=== PATIENT | female | born 1990 | race Hispanic/Latino ===

== ENCOUNTER 2019-03-16 16:14 | Emergency (ER) | payer BC, OTHER ==
--- OUTSIDE RECORDS SUMMARY | 2019-03-16 16:16 | XMS REPORT | Clinical Summary ---
:1990 Author Organization [facility] Address [address] [place] [address] Care Team Providers Name Role Phone Arelis Lyle MD Primary Care Provider Allergies No Known Allergies Medications Medication Sig Dispensed Refills Start Date End Date Status temazepam (RESTORIL) 30 TAKE ONE (1) 3 11/24/2017 Active mg capsule CAPSULE(S) BY MOUTH AT BEDTIME PRN ADIPEX-P 37.5 mg tablet TK 1 T PO QD 0 11/22/2017 Active propranolol (INDERAL) 10 TK 1 T PO BID 0 11/16/2017 Active MG tablet PRN FOR MIGRAINE LOCO caffeine 200 mg tablet Take 200 mg by 0 Active mouth every 4 (four) hours as needed for headaches. UNABLE TO FIND LIVER SUPPORT 1 0 Active DAILY magnesium oxide (MAG-OX) Take 400 mg by 0 Active 400 mg tablet mouth daily. ONABOTULINUMTOXINA (BOTOX Inject as 0 Active INJ) directed. FOR MIGRAINE LOCO Active Problems Problem Noted Date Migraine headache TMJ (dislocation of temporomandibular joint) Family History Medical History Relation Name Comments Diabetes Father Hypertension Father Liver cancer Father Heart disease Mother Relation Name Status Comments Father Mother Social History Tobacco Use Types Packs/Day Years Used Date Never Smoker Smokeless Tobacco: Never Used Alcohol Use Drinks/Week oz/Week Comments Yes OCCASIONAL Sex Assigned at Date Recorded Not on file Job Start Date Occupation Industry Not on file Not on file Not on file Travel History Travel Start Travel End No recent travel history available. Last Filed Vital Signs Not on file Plan of Treatment Health Maintenance Due Date Last Done Comments CERVICAL CANCER SCREENING 2009 INFLUENZA VACCINE 06/06/2019 Results Not on fileafter 03/15/2018 Insurance Payer Benefit Plan / Group Subscriber ID Type Phone Address AETNA AETNA PPO OPEN CHOICE xxxxxxxxxx PPO Advance Directives Patient has advance care planning documents on file. For more information, please contact:Shakeel Lofton[address] [place] [address]
--- OUTSIDE RECORDS SUMMARY | 2019-03-16 16:16 | XMS REPORT ---
:1990 [facility] Address [address] [place] [address] Dr. Cortez [address] [place] [id number] Care Team Providers Name Role Phone Unavailable Unavailable Unavailable Problems This patient has no known problems. Allergies, Adverse Reactions, Alerts This patient has no known allergies or adverse reactions. Medications This patient has no known medications.
[2019-03-16 17:04] LABS: Absolute Lymphocytes (CBC) 0.6 K/uL (0.7-4.9); Absolute Monocytes 0.3 K/uL (0.1-1.3); Absolute Neutrophil 3.8 K/uL (1.8-8.0); Basophils % 0.3 % (0-1.3); Eosinophils % 0.5 % (0-4.4); Hematocrit 39.7 % (36.0-45.0); Lymphocytes % 13.3 % (15.3-44.8); MPV 9.3 fL (7.6-11.3); Monocytes % 7.1 % (3.3-12.3); RBC Red Blood Cell Count 4.14 M/uL (3.86-4.86)
[2019-03-16] MEDS ORDERED: NA CHLORIDE 0.9% 1,000 ML ONE (17:12)
[2019-03-16 17:14] LABS: Urine Blood NEGATIVE (NEG); Urine Glucose NEGATIVE (NEG); Urine Protein NEGATIVE (NEG); Urine pH 6.5 (5.0-7.0)
[2019-03-16 17:16] LABS: Urine Bacteria NONE SEEN /HPF (<20); Urine Culture Reflex Order NOT NEEDED; Urine RBC <5 /HPF (NONE SEEN)
[2019-03-16 17:22] LABS: ALT/SGPT 226 U/L (12-78); AST/SGOT 123 U/L (15-37); Albumin 3.7 g/dL (3.4-5.0); Alkaline Phosphatase 197 U/L (45-117); BUN Blood Urea Nitrogen 9 mg/dL (7-18); Bicarbonate 26 mmol/L (21-32); Bilirubin Direct 0.2 mg/dL (0-0.2); Bilirubin Total 0.9 mg/dL (0.2-1.0); Glucose Level 90 mg/dL (74-106); Lipase 95 U/L (73-393); Potassium 3.5 mmol/L (3.5-5.1); Protein, Total 7.4 g/dL (6.4-8.2); Sodium Level 137 mmol/L (136-145)
[2019-03-16] MEDS ORDERED: KETOROLAC 30 MG/ML INJ ONE (17:56)
[2019-03-16] MEDS ORDERED: ONDANSETRON 4 MG/2 ML VIAL ONE (18:18)
--- NOTE | 2019-03-16 18:26 | RAD REPORT ---
EXAM DESCRIPTION: CTAbdomen Pelvis W Contrast - 03/16/2019 5:56 pm CLINICAL HISTORY: Abdominal pain. Abd pain;Abdominal distention COMPARISON: CT ABD PELVIS W CONTRAST dated 04/13/2009 TECHNIQUE: Biphasic CT imaging of the abdomen and pelvis was performed with 100 ml non-ionic IV cont rast. All CT scans are performed using dose optimization technique as appropriate and may include automated exposure control or mA/KV adjustment according to patient size. FINDINGS: The lung bases are clear. The liver, spleen, pancreas, adrenal glands and kidneys are within normal limits. No bowel obstruction, free air, free fluid or abscess. A few mildly prominent small bowel loops are s een along the left abdomen. The appendix is normal. No evidence of significant lymphadenopathy. No suspicious bony findings. IMPRESSION: Mild enteritis or along the left aspect of the abdomen is possible.
--- NOTE | 2019-03-16 19:00 | ER ---
Nurse's Notes [facility] Name: Oliva Diego Age: 29 yrs Sex: Female : 1990 Arrival Date: 03/16/2019 Time: 16:17 Bed 8 Private MD: Dusty Estrada Diagnosis: Noninfective gastroenteritis and colitis, unspecified Presentation: 03/16 16:22 Presenting complaint: Patient states: I started having abd swelling, pain and had fever la1 at home. I have had liver problems before so I went to urgent care and they sent me here. Transition of care: patient was not received from another setting of care. Onset of symptoms was March 16, 2019. Risk Assessment: Do you want to hurt yourself or someone else? Patient reports no desire to harm self or others. Initial Sepsis Screen: Does the patient meet any 2 criteria? No. Patient's initial sepsis screen is negative. Does the patient have a suspected source of infection? No. Patient's initial sepsis screen is negative. Care prior to arrival: None. 16:22 Method Of Arrival: Ambulatory la1 16:22 Acuity: ARVIND 3 la1 TOOL SHARPENER: 16:24 LMP 02/19/2019 la1 Historical: - Allergies: 16:23 No Known Allergies; la1 - PMHx: 16:23 Hypertension; Migraines; la1 - PSHx: 16:23 Cholecystectomy; la1 - Immunization history:: Adult Immunizations up to date. - Social history:: Smoking status: Patient/guardian denies using tobacco. - Ebola Screening: : No symptoms or risks identified at this time. Screenin:00 Abuse screen: Denies threats or abuse. Denies injuries from another. Nutritional aj screening: No deficits noted. Tuberculosis screening: No symptoms or risk factors identified. Fall Risk None identified. Assessment: 17:00 General: Appears in no apparent distress. uncomfortable, Behavior is calm, cooperative, aj appropriate for age. Pain: Complains of pain in abdomen. Neuro: Level of Consciousness is awake, alert, obeys commands, Oriented to person, place, time, situation, Appropriate for age. Respiratory: Airway is patent Respiratory effort is even, unlabored, Respiratory pattern is regular, symmetrical. GI: Abdomen is obese, Bowel sounds present X 4 quads. Derm: Skin is intact, is healthy with good turgor, Skin is pink, warm \T\ dry. normal. 17:48 Reassessment: Patient appears in no apparent distress at this time. No changes from aj previously documented assessment. Patient and/or family updated on plan of care and expected duration. Pain level reassessed. Patient is alert, oriented x 3, equal unlabored respirations, skin warm/dry/pink. 19:15 Reassessment: Patient appears in no apparent distress at this time. Patient is alert, aa1 oriented x 3, equal unlabored respirations, skin warm/dry/pink. Technology Architect at bedside discussing results with pt. Discussed d/c \T\ f/u instructions; denies questions or concerns at this this time. Ambulatory to lobby with steady gait. Patient states symptoms have improved. Vital Signs: 16:24 BP 125 / 86; Pulse 115; Resp 16; Temp 98.6; Pulse Ox 98% on R/A; Weight 71.67 kg; la1 Height 5 ft. 2 in. (157.48 cm); Pain 8/10; 18:34 BP 98 / 65; Pulse 85; Resp 18; Pulse Ox 99% on R/A; Pain 4/10; jb1 19:15 BP 107 / 65; Pulse 82; Resp 16; Temp 98.3; Pulse Ox 98% on R/A; Pain 5/10; aa1 16:24 Body Mass Index 28.90 (71.67 kg, 157.48 cm) la1 ED Course: 16:17 Patient arrived in ED. mr 16:17 None, None is Private Physician. mr 16:18 Dusty Estrada MD is Private Physician. mr 16:23 Triage completed. la1 16:24 Arm band placed on right wrist. la1 16:25 Geeta Riley, AMY is Primary Nurse. aj 16:30 Melissa Morfin FNP-C is PHCP. snw 16:30 Abel Ramirez MD is Attending Physician. snw 16:40 Inserted saline lock: 20 gauge in right antecubital area, using aseptic technique. aj Blood collected. 16:57 Radiology exam delayed due to lab results not completed at this time. (BUN/Creatinine) bq test not completed at this time. 17:00 Patient has correct armband on for positive identification. aj 17:01 Urine collected: clean catch specimen, cloudy, noni colored. jb1 17:[address] mw3 17:57 CT Abd/Pelvis - W/Contrast In Process Unspecified. EDMS 17:57 CT completed. Patient tolerated procedure well. Patient moved back from CT. mw3 18:56 Dusty Estrada MD is Referral Physician. snw 19:15 No provider procedures requiring assistance completed. IV discontinued, intact, aa1 bleeding controlled, No redness/swelling at site. Pressure dressing applied. Administered Medications: 16:48 Drug: NS 0.9% 1000 ml Route: IV; Rate: 1 bolus; Site: right antecubital; aj 17:43 CANCELLED (other intervention used): fentaNYL (PF) 25 mcg IVP once snw 17:48 Drug: TORadol 30 mg Route: IVP; Site: right antecubital; aj 18:11 Follow up: Response: Pain is decreased aj 18:11 Drug: Zofran 4 mg Route: IVP; Site: right antecubital; aj 19:11 Follow up: Response: No adverse reaction; Nausea is decreased aa1 19:07 Drug: Cipro 500 mg Route: PO; aj 19:16 Follow up: Response: No adverse reaction; Medication administered at discharge. aa1 Outcome: 18:59 Discharge ordered by MD. snw 19:15 Discharged to home ambulatory. aa1 19:15 Condition: good 19:15 Discharge instructions given to patient, Instructed on discharge instructions, follow up and referral plans. medication usage, Demonstrated understanding of instructions, follow-up care, medications, Prescriptions given X 2. 19:19 Patient left the ED. aa1 Signatures: Dispatcher [employer] EDMal Costa jbUsha Morelos, RN RN Geeta Priest RN RN Melissa Weeks, CONFIGURATION RELEASE MANAGER-C CONFIGURATION RELEASE MANAGER-Csnw LagunasNubia mr Marleny Marte Lee, RN RN Pretty Richards mw3
--- NOTE | 2019-03-16 19:00 | EDPHYS ---
Physician Documentation [facility] Name: Oliva Diego Age: 29 yrs Sex: Female : 1990 Arrival Date: 03/16/2019 Time: 16:17 Bed 8 Private MD: Dusty Estrada ED Physician Abel Ramirez HPI: 03/16 16:40 This 29 yrs old Female presents to ER via Ambulatory with complaints of snw Abdominal Swelling, Headache, Fever. 16:40 The patient presents with abdominal pain abdominal distention in the upper abdomen. snw Onset: The symptoms/episode began/occurred suddenly, 3 day(s) ago, and became worse and became persistent. The symptoms radiate to back. Associated signs and symptoms: Pertinent positives: nausea, hungry but can't eat, headache. . The symptoms are described as constant, crampy. Modifying factors: The symptoms are alleviated by nothing. Severity of pain: At its worst the pain was moderate severe in the emergency department the pain is unchanged. one year ago prior to cholecystectomy at [facility]. The patient has not recently seen a physician. BURR GRINDER: 16:24 LMP 02/19/2019 la1 Historical: - Allergies: 16:23 No Known Allergies; la1 - PMHx: 16:23 Hypertension; Migraines; la1 - PSHx: 16:23 Cholecystectomy; la1 - Immunization history:: Adult Immunizations up to date. - Social history:: Smoking status: Patient/guardian denies using tobacco. - Ebola Screening: : No symptoms or risks identified at this time. ROS: 16:40 Constitutional: Negative for fever, chills, and weight loss, Eyes: Negative for injury, snw pain, redness, and discharge, ENT: Negative for injury, pain, and discharge, Neck: Negative for injury, pain, and swelling, Cardiovascular: Negative for chest pain, palpitations, and edema, Respiratory: Negative for shortness of breath, cough, wheezing, and pleuritic chest pain, Back: Negative for injury and pain, : Negative for injury, bleeding, discharge, and swelling, MS/Extremity: Negative for injury and deformity, Skin: Negative for injury, rash, and discoloration, Neuro: Negative for headache, weakness, numbness, tingling, and seizure. 16:40 Abdomen/GI: Positive for abdominal pain, nausea, abdominal distension. Exam: 16:39 Constitutional: This is a well developed, well nourished patient who is awake, alert, snw and in no acute distress. Head/Face: Normocephalic, atraumatic. Eyes: Pupils equal round and reactive to light, extra-ocular motions intact. Lids and lashes normal. Conjunctiva and sclera are non-icteric and not injected. Cornea within normal limits. Periorbital areas with no swelling, redness, or edema. ENT: Nares patent. No nasal discharge, no septal abnormalities noted. Tympanic membranes are normal and external auditory canals are clear. Oropharynx with no redness, swelling, or masses, exudates, or evidence of obstruction, uvula midline. Mucous membranes moist. Neck: Trachea midline, no thyromegaly or masses palpated, and no cervical lymphadenopathy. Supple, full range of motion without nuchal rigidity, or vertebral point tenderness. No Meningismus. Chest/axilla: Normal chest wall appearance and motion. Nontender with no deformity. No lesions are appreciated. Cardiovascular: Regular rate and rhythm with a normal S1 and S2. No gallops, murmurs, or rubs. Normal PMI, no JVD. No pulse deficits. Respiratory: Lungs have equal breath sounds bilaterally, clear to auscultation and percussion. No rales, rhonchi or wheezes noted. No increased work of breathing, no retractions or nasal flaring. Back: No spinal tenderness. No costovertebral tenderness. Full range of motion. Skin: Warm, dry with normal turgor. Normal color with no rashes, no lesions, and no evidence of cellulitis. MS/ Extremity: Pulses equal, no cyanosis. Neurovascular intact. Full, normal range of motion. Neuro: Awake and alert, GCS 15, oriented to person, place, time, and situation. Cranial nerves II-XII grossly intact. Motor strength 5/5 in all extremities. Sensory grossly intact. Cerebellar exam normal. Normal gait. 16:39 Abdomen/GI: Inspection: distension, that is moderate, Bowel sounds: normal, Palpation: moderate abdominal tenderness, in the right upper quadrant and left upper quadrant. Vital Signs: 16:24 BP 125 / 86; Pulse 115; Resp 16; Temp 98.6; Pulse Ox 98% on R/A; Weight 71.67 kg; la1 Height 5 ft. 2 in. (157.48 cm); Pain 8/10; 18:34 BP 98 / 65; Pulse 85; Resp 18; Pulse Ox 99% on R/A; Pain 4/10; jb1 19:15 BP 107 / 65; Pulse 82; Resp 16; Temp 98.3; Pulse Ox 98% on R/A; Pain 5/10; aa1 16:24 Body Mass Index 28.90 (71.67 kg, 157.48 cm) la1 MDM: 16:39 Patient medically screened. snw 19:05 Data reviewed: vital signs, nurses notes. Data interpreted: Pulse oximetry: on room air snw is 99 %. Interpretation: normal. Counseling: I had a detailed discussion with the patient and/or guardian regarding: the historical points, exam findings, and any diagnostic results supporting the discharge/admit diagnosis, lab results, radiology results, the need for outpatient follow up, to return to the emergency department if symptoms worsen or persist or if there are any questions or concerns that arise at home. Special discussion: Based on the history and exam findings, there is no indication for further emergent testing or inpatient evaluation. I discussed with the patient/guardian the need to see the primary care provider for further evaluation of the symptoms. 03/16 16:39 Order name: Basic Metabolic Panel; Complete Time: 17:28 snw 03/16 16:39 Order name: CBC with Diff; Complete Time: 17:10 snw 03/16 16:39 Order name: Hepatic Function; Complete Time: 17:28 snw 03/16 16:39 Order name: Lipase; Complete Time: 17:28 snw 03/16 16:39 Order name: Test, Serum; Complete Time: 17:37 snw 03/16 16:47 Order name: Urine Culture snw 03/16 16:39 Order name: CT Abd/Pelvis - W/Contrast; Complete Time: 18:50 snw 03/16 16:47 Order name: Urine Microscopic Only; Complete Time: 17:28 snw 03/16 17:07 Order name: Urine Dipstick--Ancillary (enter results); Complete Time: 17:28 eb 03/16 17:07 Order name: Urine --Ancillary (enter results); Complete Time: 17:28 eb 05/11 16:39 Order name: IV Saline Lock; Complete Time: 17:17 snw 03/16 16:39 Order name: Labs collected and sent; Complete Time: 17:17 snw 03/16 16:47 Order name: Urine Test (obtain specimen); Complete Time: 17:01 snw 03/16 16:47 Order name: Urine Dipstick-Ancillary (obtain specimen); Complete Time: 17:01 snw Administered Medications: 16:48 Drug: NS 0.9% 1000 ml Route: IV; Rate: 1 bolus; Site: right antecubital; aj 17:43 CANCELLED (other intervention used): fentaNYL (PF) 25 mcg IVP once snw 17:48 Drug: TORadol 30 mg Route: IVP; Site: right antecubital; aj 18:11 Follow up: Response: Pain is decreased aj 18:11 Drug: Zofran 4 mg Route: IVP; Site: right antecubital; aj 19:11 Follow up: Response: No adverse reaction; Nausea is decreased aa1 19:07 Drug: Cipro 500 mg Route: PO; aj 19:16 Follow up: Response: No adverse reaction; Medication administered at discharge. aa1 Disposition: 03/16/19 18:59 Discharged to Home. Impression: Noninfective gastroenteritis and colitis, unspecified. - Condition is Stable. - Discharge Instructions: Food Choices to Help Relieve Diarrhea, Adult, Viral Gastroenteritis, Adult. - Prescriptions for Cipro 500 mg Oral Tablet - take 1 tablet by ORAL route every 12 hours for 10 days; 20 tablet. promethazine 25 mg Oral Tablet - take 1 tablet by ORAL route every 6 hours As needed; 20 tablet. - Work release form, Medication Reconciliation Form, Thank You Letter, Antibiotic Education, Prescription Opioid Use form. - Follow up: Dusty Estrada MD; When: 2 - 3 days; Reason: Recheck today's complaints, Continuance of care, Re-evaluation by your physician. Follow up: Emergency Department; When: As needed; Reason: Worsening of condition. Addendum: 03/18/2019 07:01 Co-signature as Attending Physician, Abel Ramirez MD. r n Signatures: Dispatcher [employer] EDUsha Fermin RN RN aa1 Geeta Riley RN RN aj Therrien, Shelly, SPECIAL NEEDS BUS DRIVER-C SPECIAL NEEDS BUS DRIVER-Csnw Abel Ramirez MD MD rn Attema, Lee, RN RN la1 Corrections: (The following items were deleted from the chart) 03/16 17:43 17:38 fentaNYL (PF) 25 mcg IVP once ordered. snw snw 19:19 18:59 03/16/2019 18:59 Discharged to Home. Impression: Noninfective gastroenteritis and aa1 colitis, unspecified. Condition is Stable. Forms are Medication Reconciliation Form, Thank You Letter, Antibiotic Education, Prescription Opioid Use. Follow up: Dusty Estrada; When: 2 - 3 days; Reason: Recheck today's complaints, Continuance of care, Re-evaluation by your physician. Follow up: Emergency Department; When: As needed; Reason: Worsening of condition. snw
[2019-03-16] MEDS ORDERED: CIPROFLOXACIN HCL 500 MG TAB ONE (19:15)
[2019-03-16 19:32] VITALS: BP 107/65; TEMP 98.3; O2SAT 98
== END 2019-03-16 19:19 | disposition home or self-care (01) ==
LOC: ER 16:14
DX: K52.9 Noninfective gastroenteritis and colitis, unspecified (principal); I10 Essential (primary) hypertension; Z90.49 Acquired absence of other specified parts of digestive tract
CPT/HCPCS: 36415; 74177; 80048; 80076; 81003; 81015; 81025; 83690; 84703; 85025; 87086; 87088; 96374; 96375; 99284; J2405; J7030; Q9967